=== PATIENT | female | born 1945 | race Caucasian/White ===

== ENCOUNTER → 2016-12-18 | Day surgery (SDC) | payer MEDICARE, OTHER ==
[~2016-12-18] VITALS: Ht 160 cm; Wt 98.7 kg
[~2016-12-18] MED LIST: AMARYL4 MG PO; AMITRIPTYLINE100 MG GT; ATIVAN0.5 MG PO; BENZONATATE200 MG GT; COZAAR 25MG TAB25 MG PO; COZAAR50 MG GT; CYMBALTA60 MG GT; DUONEB 2.5-0.5M1 AMP INH; FLURAZEPAM HCL30 MG GT; GLUCOPHAGE500 MG PO; GLUCOTROL5 MG GT; METRONIDAZOLE500 MG GT; PERCOCET 10-321 EACH GT; PREDNISONE 20MG20 MG PO; PROMETHAZINE/C120 ML GT; PULMICORT0.5 MG/2 M NEB
[2016-12-18 10:56] LABS: HCT 36.8 % (37.0-47.0); MCH 29.3 pg (25.0-31.0); MCHC 32.6 g/dL (32.0-36.0); MCV 89.8 fL (78.0-100.0); MPV 8.8 fL (6.0-9.5); RBC 4.1 M/uL (4.20-5.40); RDW 13.7 % (11.5-14.0); WBC 10.1 K/uL (4.0-10.5)
[2016-12-18 11:53] LABS: ALBUMIN 3.5 g/dL (3.4-4.8); BILIRUBIN - TOTAL 0.2 mg/dL (0.1-1.0); CREATININE 1.2 mg/dL (0.5-1.0); GLOBULIN (CALCULATION) 3.2 g/dL (2.2-4.2); POTASSIUM 4.3 mmol/L (3.5-5.1); TOTAL PROTEIN 6.7 g/dL (6.4-8.3)
== END | disposition home or self-care (01) ==
LOC: FAS 09:44
PROVIDERS: Surgery
DX: K94.23 Gastrostomy malfunction (principal); M62.3 Immobility syndrome (paraplegic); I10 Essential (primary) hypertension; K21.9 Gastro-esophageal reflux disease without esophagitis; R56.9 Unspecified convulsions; G47.30 Sleep apnea, unspecified; Z99.81 Dependence on supplemental oxygen; Z87.01 Personal history of pneumonia (recurrent); Z85.828 Personal history of other malignant neoplasm of skin
CPT/HCPCS: 36415; 80053; J2704

== ENCOUNTER 2016-12-23 11:03 | Emergency (ER) | payer MEDICARE, OTHER | END 2016-12-23 12:42 | disposition home or self-care (01) | LOC: FER 11:03 | DX: Z43.1 Encounter for attention to gastrostomy (principal); M34.9 Systemic sclerosis, unspecified; E11.9 Type 2 diabetes mellitus without complications; Z79.84 Long term (current) use of oral hypoglycemic drugs; J44.9 Chronic obstructive pulmonary disease, unspecified; I10 Essential (primary) hypertension | CPT/HCPCS: 99282 ==